=== PATIENT | female | born 1945 | race Caucasian/White ===

== ENCOUNTER 2017-02-19 08:00 | Outpatient (CLI) | payer MEDICARE, OTHER | END 2017-02-19 08:01 | disposition home or self-care (01) | LOC: BICMAMMO 08:00 | PROVIDERS: ATTEND Family Medicine | DX: Z12.31 Encounter for screening mammogram for malignant neoplasm of breast (principal); Z13.820 Encounter for screening for osteoporosis; M81.0 Age-related osteoporosis without current pathological fracture; Z80.3 Family history of malignant neoplasm of breast | CPT/HCPCS: 77063; 77080 ==

== ENCOUNTER 2017-03-20 18:16 | Inpatient (IN) | payer MEDICARE, OTHER ==
[2017-03-20 19:08] LABS: Bilirubin Negative (Negative); Blood, Urine Negative (Negative); Clarity CLEAR (Clear); Glucose, Urine (Dipstick) Negative (Negative); Leukocyte Negative (Negative); Nitrite Negative (Negative); Protein, Urine (Dipstick) Negative (Neg-Trace); Specific Gravity, Urine 1.017 (1.002-1.036); Urobilinogen 0.2 mg/dL (0.2-1.0); pH, Urine 7.5 (5.0-9.0)
[2017-03-20] MEDS ORDERED: Morphine 4 MG/ML VIAL ONE ×2 (19:25→20:25)
[2017-03-20] MEDS ORDERED: Ondansetron HCl/PF 4 MG/2 ML Vial ONE (19:28)
[2017-03-20 19:32] LABS: #Basophils 0.1 thou/uL (0.0-0.2); #Lymphocytes 1.6 thou/uL (1.20-3.40); #Neutrophils 7.1 thou/uL (1.40-6.50); %Basophils 0.8 % (0.0-1.0); %Eosinophils 0.5 % (0.0-10.0); %Lymphocytes 18.3 % (21.0-51.0); %Monocytes 0.1 % (0.0-10.0); %Neutrophils 80.4 % (42.0-75.0); Hemoglobin 10.6 g/dL (12.0-16.0); Mean Corpuscular HGB CONC 34.5 g/dL (32.0-36.0); Mean Corpuscular Hemoglobin 29.8 pg (27.0-31.0); Mean Corpuscular Volume 86.4 fl (81.0-99.0); Mean Platelet Volume 10.3 fL (7.4-10.4); Platelet Count 408 thou/uL (130-400); RBC Distribution Width 17.8 % (11.5-14.5); Red Blood Cell (RBC) Count 3.54 mill/uL (4.20-5.40); White Blood Cell (WBC) Count 8.9 thou/uL (4.8-10.8)
[2017-03-20 19:58] LABS: Albumin 3.9 g/dL (3.4-4.8); Alkaline Phosphatase 92 U/L (40-150); Anion Gap 13 mmol/L (10-20); BUN (Urea Nitrogen) 8 mg/dL (9.8-20.1); Bilirubin, Total 0.6 mg/dL (0.2-1.2); Calc. Creatinine Clearance 0 mL/min (70-130); Calcium 9.6 mg/dL (7.8-10.44); Carbon Dioxide 27 mmol/L (23-31); Chloride 104 mmol/L (98-107); Estimated GFR-MDRD Greater than 90; Globulin 3.9 g/dL (2.4-3.5); Glucose 115 mg/dL (83-110); Potassium 4.3 mmol/L (3.5-5.1); Protein, Total 7.8 g/dL (6.0-8.3); Sodium 140 mmol/L (136-145)
[2017-03-20 19:59] LABS: ALT (SGPT) 15 U/L (8-55); AST (SGOT) 17 U/L (5-34); Lipase 6 U/L (8-78)
[2017-03-20] MEDS ORDERED: Fentanyl 100 MCG/2 ML VIAL ONE (21:56)
--- NOTE | 2017-03-20 22:18 | RAD ---
ONE VIEW CHEST ABDOMEN TWO VIEWS 03/20/17 HISTORY: Pain. FINDINGS: ONE VIEW CHEST: Normal cardiac silhouette. The pulmonary vessels and hilum are normal. costophrenic angles are clear. No masses or consolidation. No pneumothorax or osseous abnormality. ABDOMEN TWO VIEWS: Nonspecific bowel gas pattern. No evidence of bowel distention or dilatation. Fecal material in a non distended, nondilated colon. Gallbladder is surgically absent. Previous vertebroplasty change involving the entire lumbar spine. IMPRESSION: 1. No acute cardiopulmonary process. 2. Nonspecific bowel gas pattern. POS: [facility]
[2017-03-20 23:59] VITALS: BMI 18.3
[2017-03-21] MEDS: Ondansetron HCl/PF 4 MG/2 ML Vial SLOW IVP PRN ×2 (00:33→06:16)
[2017-03-21] MEDS: D5 1/2 NS w/20 mEq KCL 1,000 ML IV SCH ×3 (00:33→21:48)
[2017-03-21] MEDS: predniSONE 50 MG TAB PO SCH ×3 (00:38→12:57)
[2017-03-21] MEDS: Fentanyl 100 MCG/2 ML VIAL SLOW IVP PRN ×6 (01:34→22:41)
[2017-03-21] MEDS ORDERED: DENOSUMAB 60 MG SC SCH (08:00)
[2017-03-21] MEDS ORDERED: Sodium Chloride 0.9% 10 ML ONE ×5 (08:15→15:15)
[2017-03-21] MEDS ORDERED: LEVOTHYROXINE SODIUM PO SCH (09:00)
--- NOTE | 2017-03-21 10:56 | HP ---
HISTORY OF PRESENT ILLNESS: The patient is a 72-year-old female who presented to the emergency room complaining of a 2 week history of abdominal pain. She had recently been hospitalized at [facility]. I did receive reports from them as well from Dr. Aalnis, the patient had recur rent abdominal pain. No primary etiology could be determined despite numerous testing. She apparent ly had been set up for CT scan here. I was informed that should she had increasing pain to report to the emergency room here at [place], which she stated does. She has noted nausea with diarrhea, b ut no blood, no fever. She rates her pain as a 10/10. She states she is scheduled to have some type of CT scan done. The exact nature of a CT scan is unknown to me. She also states she has been refe rred to Dr. Hill. Once again, I am unaware of the apparent referral at this time. Otherwise, no other medical complaints are noted. PAST MEDICAL HISTORY: Positive for multiple back procedures due to fractures. PAST SURGICAL HISTORY: Positive for multiple back procedures, TMJ surgery, thyroid surgery, appendec sonia, cholecystectomy, hysterectomy as well as tonsillectomy. ALLERGIES: She is allergic to ASPIRIN, CODEINE, CODEINE SULFATE, IODINE, PENICILLIN and SHELLFISH. CURRENT MEDICATIONS: Levothyroxine 0.25 mg daily, Protonix 40 mg daily, gabapentin 100 mg p.o. daily . SOCIAL AND PERSONAL HISTORY: She is single. She does not smoke nor does she drink alcohol. REVIEW OF SYSTEMS: CARDIOVASCULAR: Negative. GENITOURINARY: Negative. NEUROLOGIC: Negative. PULMONARY: Otherwise negative. PHYSICAL EXAMINATION: VITAL SIGNS: Temperature 97.9, BP 163/69, pulse 74, respirations 16, O2 sats 95%. GENERAL: She is alert, active, does not appear in any distress. HEENT: Normocephalic, atraumatic. Sclerae and conjunctivae clear. Throat clear. NECK: Supple, full range of motion, no masses. LUNGS: Bilateral breath sounds. HEART: Reveals a regular rate and rhythm without murmurs, gallops or rubs. ABDOMEN: The abdomen is distended and somewhat firm. Bowel sounds are minimal. There is diffuse te nderness noted. LABORATORY: Hemoglobin 10.6, hematocrit 30.6, white blood count 8.9. Electrolyte profile is normal. Urinalysis is otherwise clear. Acute abdominal series is otherwise unremarkable. IMPRESSION: Chronic abdominal pain. PLAN: It appears the patient is here to get a "special CT scan". I am unaware of the exact nature o f the CT scan. It has been scheduled as an outpatient already. I will see if they can transfer this as an inpatient procedure. I will consult GI and possible surgical consult.
[2017-03-21] MEDS ORDERED: diphenhydrAMINE 50 MG CAP PO SCH (13:00)
--- NOTE | 2017-03-21 13:09 | CON ---
DATE OF CONSULTATION: 03/21/2017 REASON FOR CONSULTATION: Chronic abdominal pain, abnormal GI imaging. CONSULTING PHYSICIAN: Dr. Torrey Schultz. HISTORY OF PRESENT ILLNESS: The patient is a 72-year-old female with past medical history of asthma, chronic lower back pain, and hypothyroidism, who presenting with chronic abdominal pain. Upon chart review, she was admitted to the [facility] in the beginning of February 2017 with acute onset of periumbilical abdominal pain. During that particular hospitalization, she had a CT scan that showed mild diffuse dilation of the small bowel (but no clear transition point) although a small-bowel obstruction could not be ruled out. Repeat CT scan on 02/28/2017 also showed a mildly dilated small bowel, but again no transition point concerning for small-bowel obstruction. She was ultimately discharged with improvement of her pain with conservative measures and was doing well until approximately 24-48 hours ago when she had recurrence of the same abdominal pain located in the suprapubic/periumbilical abdominal regions with radiation to the midepigastric region. The pain is characterized as sharp/stabbing in nature, constant, 10/10 in severity, worse with movement and eating and better with leaning forward and pain medications. Her abdominal pain was also associated with one bout of a watery diarrhea like bowel movement yesterday without the occurrence of hematochezia or melena. She also has associated nausea and vomiting of nonbloody emesis and associated with the abdominal pain. She denies any fever, chills, odynophagia, dysphagia, and has not passed flatus. Of note, as an outpatient, she was scheduled to have a CT enterography for further delineation of the small-bowel mucosa that was ordered on 03/07/2017, but still had not been performed. She also had a referral appointment with Dr. Hill that was supposed to be scheduled after obtaining this particular CT scan. Of note, she underwent EGD in 02/2017 with normal findings. REVIEW OF SYSTEMS: A 12 category review of systems was obtained with responses negative except for the pertinent positives as listed in the HPI. PAST MEDICAL HISTORY: Asthma, chronic lower back pain, and hypothyroidism. PAST SURGICAL HISTORY: Multiple back surgeries, TMJ surgery, thyroid surgery, appendectomy, cholecystectomy, hysterectomy, tonsillectomy, and colonic resection in 2002 secondary to obstruction. FAMILY HISTORY: No GI malignancies. SOCIAL HISTORY: Denies any tobacco, alcohol, or illicit drug use. OUTPATIENT MEDICATIONS: Include levothyroxine, Protonix, gabapentin, and Tylenol (approximately 2500 mg daily). ALLERGIES: Allergic to ASPIRIN, CODEINE, CODEINE SULFATE, IODINE, PENICILLIN, and SHELLFISH. PHYSICAL EXAMINATION: VITAL SIGNS: Temperature 97.9, pulse 73, blood pressure 167/70, respiratory rate 18, and satting 97% on room air. GENERAL: Patient is in no acute distress. Alert and oriented x4. HEENT: Normocephalic, atraumatic. Pupils equal, round, reactive to light. Extraocular movements intact. NECK: Supple. No JVD noted. CARDIOVASCULAR: Regular rate and rhythm with no discernible murmurs, gallops, or rub. RESPIRATORY: Clear to auscultation bilaterally with no discernible wheezes or rales. ABDOMEN: Normoactive bowel sounds, soft, nondistended. No hepatosplenomegaly. Exquisite tenderness to palpation on both light and deep palpation in the midepigastric periumbilical and suprapubic regions. Carnett sign positive. EXTREMITIES: No cyanosis, clubbing, or edema. IMAGING STUDIES: No current GI imaging is available for review. LABORATORY STUDIES: CBC with a white blood cell count of 8.9, hemoglobin 10.6, hematocrit 30.6, platelets 408. Chemistry with a sodium of 140, potassium 4.3, chloride 104, carbon dioxide 27, BUN 8, creatinine 0.63, platelets 115, AST 17, ALT 15, alkaline phosphatase 92, total bilirubin 0.6, and lipase 6. ASSESSMENT AND PLAN: The patient is a 72-year-old female with past medical history of asthma, chronic lower back pain, and hypothyroidism, who presenting with chronic recurrent periumbilical abdominal pain. Chronic abdominal pain The patient is presenting with chronic intermittent occurrences of periumbilical /suprapubic abdominal pain that originally started in early 02/2017. She was evaluated at the [facility] with initial CT scan showing a possible partial small-bowel obstruction due to diffusely dilated small bowel. Repeat CT scan on 02/28/2017 showed dilation of the small-bowel mucosa to 2.5 cm , but no discernible transition point. She is now presenting with recurrence of this abdominal pain despite more conservative measures that were pursued with the last hospitalization. She underwent EGD in 02/2017 which was negative for obvious pathology. She was recommended to get a CT enterography as an outpatient as well as follow up with the general surgeon, Dr. Hill, for evaluation and further definitive treatment if partial small-bowel obstruction is detected. Her current labs are not indicative of a complete small-bowel obstruction nor peritonitis. Lipase is normal making a diagnosis of pancreatitis also very unlikely. With Carnett sign positive on physical examination, it is concerning for abdominal wall pain and/or ventral hernia with incarcerated fat or bowel, although incarcerated bowel is also highly unlikely at this time. RECOMMENDATIONS: 1. We would obtain CT enterography of the abdomen and pelvis today for further evaluation of the abdominal anatomy as well as small-bowel intraluminal mucosa. 2. Continue pain control per primary team. 3. We would continue aggressive antiemetic administration as well as IV fluid administration, given her n.p.o. status. EGD is not indicated at this time due to recent negative upper endoscopy in 02/2017. MTDD
--- NOTE | 2017-03-21 16:23 | CT ---
CT ABDOMEN AND PELVIS WITH AND WITHOUT IV CONTRAST 03/21/17 HISTORY: Abdominal pain, diarrhea. Colon resection in 2002, status post appendectomy and hysterectomy as well. FINDINGS: There are bilateral breast implants. The lungs bases are unremarkable. No free air or lymphadenopathy seen in the abdomen or pelvis. There is a small amount of free fluid adjacent to the liver. The april ent is post hysterectomy and cholecystectomy. The liver, spleen, pancreas, adrenal glands are unremarkable. Bilateral renal cysts are present. Ther e is a prominent right extrarenal pelvis. No calculi is seen in the kidneys, ureters or the urinary b ladder. No hydroureteronephrosis is noted. There is a fluid filled distended gallbladder. A small bow el feces sign is seen in the proximal small bowel loops which are mildly dilated. The distal small miller wel loops also have air and feces but are not dilated. There are degenerative changes in the spine. T here are vascular calcifications without evidence of aneurysmal dilatation of the abdominal aorta. IMPRESSION: Findings are suspicious for small bowel obstruction. Other possibilities include metabolic or infecti ous processes. POS: [facility]
[2017-03-21] MEDS ORDERED: Fentanyl 100 MCG/2 ML VIAL SLOW IVP PRN (17:25)
[2017-03-21] MEDS: Betamethasone 0.1% Cream 15 GM TUBE TOP SCH (17:37)
[2017-03-21] MEDS: Calcium Carbonate + Vit D 1 TAB PO SCH (17:37)
[2017-03-21] MEDS: Montelukast Sodium 10 mg Tablet PO SCH (17:37)
[2017-03-21] MEDS ORDERED: Benzocaine 20% Spray 60 ML CAN PO PRN (18:03)
--- NOTE | 2017-03-21 20:57 | RAD ---
EXAM: ONE VIEW ABDOMEN 03/21/17 HISTORY: Confirm NG tube placement. FINDINGS: One view abdomen demonstrates and nasogastric tube in the left upper quadrant, presumed to be in the stomach. IMPRESSION: NG tube is presumed to be in the stomach. POS: [facility]
[2017-03-22] MEDS: Fentanyl 100 MCG/2 ML VIAL SLOW IVP PRN ×5 (02:51→20:21)
[2017-03-22 06:04] LABS: #Lymphocytes 1.2 thou/uL (1.20-3.40); %Eosinophils 0.2 % (0.0-10.0); %Lymphocytes 14.3 % (21.0-51.0); %Monocytes 0.1 % (0.0-10.0); %Neutrophils 85.4 % (42.0-75.0); Hemoglobin 9.5 g/dL (12.0-16.0); Mean Corpuscular HGB CONC 33.2 g/dL (32.0-36.0); Mean Corpuscular Hemoglobin 29.1 pg (27.0-31.0); Mean Corpuscular Volume 87.6 fl (81.0-99.0); Mean Platelet Volume 10.8 fL (7.4-10.4); Platelet Count 313 thou/uL (130-400); RBC Distribution Width 17.9 % (11.5-14.5); Red Blood Cell (RBC) Count 3.27 mill/uL (4.20-5.40); White Blood Cell (WBC) Count 8.2 thou/uL (4.8-10.8)
[2017-03-22 06:22] LABS: Anion Gap 12 mmol/L (10-20); BUN (Urea Nitrogen) 7 mg/dL (9.8-20.1); Calc. Creatinine Clearance 71 mL/min (70-130); Calcium 8.6 mg/dL (7.8-10.44); Carbon Dioxide 21 mmol/L (23-31); Chloride 109 mmol/L (98-107); Estimated GFR-MDRD Greater than 90; Glucose 135 mg/dL (83-110); Sodium 137 mmol/L (136-145)
[2017-03-22] MEDS: D5 1/2 NS w/20 mEq KCL 1,000 ML IV SCH (06:57)
[2017-03-22] MEDS: Dextrose 5 %-0.45 % NaCl 1,000 ML IV SCH ×2 (07:00→17:29)
[2017-03-22] MEDS: Levothyroxine 150 MCG TAB PO SCH (07:19)
[2017-03-22] MEDS: Betamethasone 0.1% Cream 15 GM TUBE TOP SCH (08:28)
[2017-03-22] MEDS: Calcium Carbonate + Vit D 1 TAB PO SCH (08:28)
[2017-03-22] MEDS: Montelukast Sodium 10 mg Tablet PO SCH (08:29)
--- NOTE | 2017-03-22 12:10 | PRG ---
DATE OF SERVICE: 03/22/2017 SUBJECTIVE: Ms. Forman is still complaining of some abdominal pain and throat pain from her NG tube. The patient had CT scan done yesterday and report reveals possible small-bowel obstruction versus oth er metabolic or infectious processes. There is no evidence of any significant dilated loops of bowel noted on CT. Nevertheless, yesterday she had an NG tube placed. The nurses have informed that a harvey rgical consultation has been ordered from Dr. Edwards and otherwise, no other medical problems are no jenifer. PHYSICAL EXAMINATION: VITAL SIGNS: Temperature is 98.0, blood pressure 163/70. LUNGS: Clear. HEART: Reveals no murmur. ABDOMEN: Softer today than yesterday, less distended. LABORATORY DATA: Hemoglobin 9.5, hematocrit 28.6, white blood count 8.2. Electrolyte profile is ess entially normal. IMPRESSION AND PLAN: Abdominal pain of unknown etiology, suspicion for possible small-bowel obstruct ion, cannot rule out any other metabolic processes. Previous workup done at [facility] with Gastroenterology. Further treatment recommendations, we will await surgical consult.
--- NOTE | 2017-03-22 12:27 | RAD ---
RADIOGRAPH ABDOMEN ONE VIEW: Date: 03-22-17 History: 71-year-old female with abdominal pain. Rule out small bowel obstruction. Comparison: KUB 03-21-17 at 7:21 p.m. FINDINGS: NG tube remains with distal tip at the lateral aspect of the left upper quadrant of the abdomen. Chol ecystectomy clips. Gas throughout nondilated colon. Whereas previously stool was not well visualized, a moderate amount of stool is now well visualized throughout the entire colon. Air filled borderline dilated multiple small bowel loops are visualized in the mid and lower abdomen. No evidence of organ omegaly. Vertebroplasty cement at every vertebral body level from T12 through L5. Whereas previously there was fold thickening involving the colon and small intestine, that appearance has improved now, especially of the colon. IMPRESSION: 1. No evidence of high grade small bowel obstruction. 2. Multiple borderline dilated small bowel loops. Possibilities include ileus and low grade partial s mall bowel obstruction. 3. Apparent interval improvement in the appearance of enterocolitis since yesterday. POS: [facility]
--- NOTE | 2017-03-22 17:24 | CON ---
DATE OF CONSULTATION: 03/22/2017. CONSULTING PHYSICIAN: Dr. Faheem Griffiths. REASON FOR CONSULTATION: Possible small-bowel obstruction. HISTORY OF PRESENT ILLNESS: Patient is a 72-year-old white female. She was admitted to the hospital on 03/20/2017 secondary to complaint of severe diffuse abdominal pain. She gives a history of a 10- day hospitalization at [facility] in February for the same symptoms. She underwe nt evaluation with upper GI endoscopy and CT scan. There were no definite findings of abnormality. She felt better by the time she was discharged. She was home for about 2 weeks. She states that dur ing that time, she had no vomiting, but she did have some mild diffuse pain and notes that she did duke ve some diarrhea. A couple of days ago, she again had some nausea, some diarrhea and recurrent pain and presented to the emergency room. A CT scan was obtained here revealing findings potentially cons istent with a small-bowel obstruction with enlarged stomach and some segment of dilated proximal smal l bowel. Nasogastric tube was placed, but almost no material was returned through the tube. When I presented to see her this morning, there was less than 5 mL in the NG container. She notes that she has had a bowel movement since her admission. She states that the pain is diffuse within the abdomen, may be m ore prominent in the upper abdomen than the lower abdomen. PAST MEDICAL HISTORY: 1. Asthma. 2. Lower back pain. 3. Hypothyroidism. PAST SURGICAL HISTORY: 1. Multiple back surgeries. 2. TMJ surgery. 3. Thyroid surgery. 4. Appendectomy. 5. Cholecystectomy. 6. Hysterectomy. 7. Tonsillectomy. 8. Colon resection in 2002 secondary to some obstructive process. MEDICATIONS: Include levothyroxine, Protonix, and gabapentin. PRIMARY CARE PHYSICIAN: Dr. Faheem Griffiths. SOCIAL HISTORY: She is with one living child. One of her sons of colon cancer. She de nies tobacco or alcohol use. REVIEW OF SYSTEMS: Otherwise, unremarkable. FAMILY HISTORY: Noncontributory. PHYSICAL EXAMINATION: VITAL SIGNS: She is afebrile and has been afebrile since her admission. Her pulse is stable between 73 and 83, blood pressure is 174/75. GENERAL: She is a well-developed, well-nourished, pleasant white female resting in bed in no acute d istress. She is alert and oriented x3. HEENT: Unremarkable. Nasogastric tube is present. NECK: Supple. LUNGS: Clear to auscultation anteriorly. CARDIAC: Regular rate and rhythm. ABDOMEN: Has well healed lower abdominal incision. It is mildly distended if at all. She has kayla l active bowel sounds. There is no guarding in any quadrant. RECTAL: Deferred. EXTREMITIES: Unremarkable. LABORATORY FINDINGS: The patient had labs drawn when she was admitted at 7:00 on 03/20/2017, and rep eat labs drawn this morning on 03/22/2017. Her CBC reveals mild anemia, 10.6 on admission and 9.5, c urrently. White blood cell count is normal at 8. Chemistry profile was essentially unremarkable at the time of admission. Her CO2 level has dropped from 27 down to 21. X-RAYS: KUB was obtained this morning. This revealed a normal amount of gas within the colon and so me stool present within the colon. There is a suggestion of some possible dilated loops of small bow el, but it is hard to tell on the plain film. ASSESSMENT: Patient with diffuse nonspecific abdominal pain with no definite evidence of intra-abdom inal acute process. It is hard to tell if she may have some degree of small-bowel obstruction, but i t seems unlikely given that there is no output from her nasogastric tube. Patient with diffuse abdominal pain of uncertain etiology. Given her multiple surgeries, adhesive pr ocess is certainly possible. It is not typical that adhesions will cause pain in the absence of obst ruction. I have recommended Gastrografin small bowel follow through to evaluate for small-bowel obst ruction either partial or complete. Unfortunately, she has an allergy to IODINE, has been determined by Radiology that the IODINE within Gastrografin is potentially a problem and she is therefore being premedicated with plans to obtain the small-bowel follow through tomorrow (Saturday) nasogastric tub e will be continued until then. I would encourage her to ambulate several times a day. If there is no evidence of bowel obstruction, then I am uncertain as to the etiology of her abdominal pain. It c ould theoretically be related to adhesive disease, but this is certainly not typical. It is also pos sible, given the extent of her back issues that this could be in some fashion related to a radiculopa thy or nerve related pain associated with her back problems. I would anticipate removal of her nasogastric tube after her small-bowel follow through tomorrow. Fu rther decision making will follow.
[2017-03-22] MEDS: predniSONE 50 MG TAB PO SCH (21:29)
--- NOTE | 2017-03-22 22:43 | PRG ---
DATE OF SERVICE: 03/22/2017 REASON FOR CONSULTATION: Chronic abdominal pain, abnormal GI imaging. SUBJECTIVE: Overnight, the patient continues to have the presenting suprapubic/periumbilical abdomin al pain with radiation to the midepigastric region despite placement of the NG tube yesterday, this p ain persists. Minimal output has been noticed from the NG tube over the last 12 hours. She currentl y denies any fevers, chills, shortness of breath, odynophagia, dysphagia, or diarrhea. PHYSICAL EXAMINATION: VITAL SIGNS: Temperature 97.9, pulse 73, blood pressure 179/75, respiratory rate 20, satting 98% on room air. GENERAL: The patient is in mild to moderate distress. Alert and oriented x4. NECK: Supple. No JVD noted. CARDIOVASCULAR: Tachycardic rate with regular rhythm with no discernible murmurs, gallops, or rubs. RESPIRATORY: Clear to auscultation bilaterally with no discernible wheezes or rales. ABDOMEN: Normoactive bowel sounds, soft, nondistended. Exquisite tenderness to palpation on both li ght and deep to palpation in the midepigastric periumbilical and suprapubic regions. EXTREMITIES: No cyanosis, clubbing, or edema. IMAGING STUDIES: CT enterography obtained on 03/21/2017, showed a small-bowel feces sign in the prox imal small bowel loops, which were mildly dilated. The distal small bowel loops also have air and feces that are nondilated. The findings were suspicio us for small-bowel obstruction. Other possibilities include metabolic or infectious process. LABORATORY DATA: CBC with a white blood cell count of 8.2, hemoglobin 9.5, hematocrit 28.6, platelet s 313. Chemistry with a sodium of 137, potassium 5, chloride 109, CO2 21, BUN 7, creatinine 0.59, gl ucose 135. ASSESSMENT AND PLAN: The patient is a 72-year-old female with past medical history of asthma, chroni c lower back pain, and hypothyroidism, who is presenting with chronic recurrent periumbilical abdomin al pain concerning for possible small-bowel obstruction. The patient is presenting with chronic inte rmittent occurrences of periumbilical/suprapubic abdominal pain, it originally started in 02/2017. S he has now had multiple imaging at [facility] showin g mild dilation of the proximal small bowel, but no discernible transition point. Of note, she also underwent an EGD in 02/2017 which was negative for obvious pathology in the upper GI tract. Currentl y with NG tube placed, she has had minimal NG tube output, which is not consistent with significant o bstruction of the upper GI tract. Her current labs are also not indicative of a complete small-bowel obstruction nor peritonitis with normal lipase. The diagnosis of pancreatitis is also very unlikely at this time, the etiology of her abdominal pain is unclear, but with multiple imaging studies now i s showing a proximal small bowel mild dilation is concerning for a partial small-bowel obstruction. The differential diagnosis for the above clinical constellation of symptoms could include small bowel Crohn's disease, adhesive disease (given her extensive abdominal surgeries in the past), intralumina l small bowel neoplasm (unlikely given the distinct transition point seen on imaging), infectious matt ology (unlikely given her lack of diarrhea since admission), and/or possible ischemia of the small miller wel (also unlikely given her current labs). RECOMMENDATIONS: 1. Agree with General Surgery consultation in that further delineation of the anatomy as needed with small bowel follow through. 2. Would continue with NG tube to low intermittent suction. 3. Would continue n.p.o. status with IV fluid administration. 4. EGD is not indicated at this time due to recent negative upper endoscopy in 02/2017 and minimal o utput on NG tube. We will continue to follow. Please call with any questions.
[2017-03-23] MEDS: Fentanyl 100 MCG/2 ML VIAL SLOW IVP PRN ×3 (01:34→12:12)
[2017-03-23] MEDS: predniSONE 50 MG TAB PO SCH ×2 (01:34→08:40)
[2017-03-23] MEDS: Dextrose 5 %-0.45 % NaCl 1,000 ML IV SCH ×2 (03:35→17:07)
[2017-03-23] MEDS ORDERED: MD-Gastroview 120 ML BOT ONE (06:28)
[2017-03-23] MEDS ORDERED: diphenhydrAMINE 50 MG CAP PO SCH (08:00)
[2017-03-23] MEDS: Montelukast Sodium 10 mg Tablet PO SCH (10:20)
[2017-03-23] MEDS: Calcium Carbonate + Vit D 1 TAB PO SCH (10:20)
[2017-03-23] MEDS ORDERED: Ondansetron HCl/PF 4 MG/2 ML Vial IVP PRN (10:25)
[2017-03-23] MEDS: Levothyroxine 150 MCG TAB PO SCH (10:29)
[2017-03-23] MEDS ORDERED: Ondansetron HCl/PF 4 MG/2 ML Vial IVP SCH (10:30)
--- NOTE | 2017-03-23 10:47 | PRG ---
DATE OF SERVICE: 03/23/2017 SUBJECTIVE: The patient still complains of abdominal pain. NG tube is in place. No reported fever. OBJECTIVE: VITAL SIGNS: Temperature 97.9, pulse 73, respirations 20, and blood pressure 187/79. HEART: Regular rate and rhythm. LUNGS: Clear. ABDOMEN: With bowel sounds from the NG tube. The patient is not passing any flatus or stool. LABORATORY DATA: None. ASSESSMENT: 1. Abdominal pain, most likely small-bowel obstruction. The patient does have a history of multiple abdominal surgeries. Workup is still pending. 2. Elevated blood pressure. Possibly related to the pain. Consider adding antihypertensive medicat ion. 3. History of multiple abdominal surgeries. 4. History of asthma. PLAN: 1. Small bowel, follow through today. 2. Continue NG tube. 3. We will continue to follow. 4. We will go ahead and start a Catapres TTS 2 patch every 7 days. 5. We will check BNP today.
[2017-03-23] MEDS ORDERED: cloNIDine 0.2mg/24 Hour PATCH TD SCH (11:00)
[2017-03-23] MEDS: Betamethasone 0.1% Cream 15 GM TUBE TOP SCH (11:48)
--- NOTE | 2017-03-23 12:04 | RAD ---
GASTROGRAFIN SMALL BOWEL EXAM: HISTORY: Assess for small bowel obstruction. Abdominal pain. FINDINGS: Edge [employer] film reveals some residual contrast in the colon from recent CT scan. An NG tube is in place w ith tip overlying the mid gastric fundus. The bowel gas pattern is unremarkable with scattered stool and gas throughout the colon. Multiple vertebroplasty procedures are noted in the visualized thorac ic and lumbar spine. Gastrografin was infused through the NG tube and sequential images were obtaine d at 15-minute intervals out to 1 hour. The initial images show opacification of the jejunum and ileum at 30 minutes. No evidence of dilatat ion. There is mild dilatation of the distal ileum seen on 45-minute film. However, by the 1-hour fi lm, contrast is seen throughout the colon and to the level of the rectum. IMPRESSION: Normal transit time through the small bowel with contrast to the level of the rectum at 1 hour. No e vidence of small bowel obstruction. POS: [facility]
[2017-03-23 12:21] LABS: Anion Gap 16 mmol/L (10-20); BUN (Urea Nitrogen) 10 mg/dL (9.8-20.1); Calc. Creatinine Clearance 66 mL/min (70-130); Calcium 9.4 mg/dL (7.8-10.44); Carbon Dioxide 21 mmol/L (23-31); Chloride 111 mmol/L (98-107); Estimated GFR-MDRD Greater than 90; Glucose 140 mg/dL (83-110); Potassium 4.1 mmol/L (3.5-5.1); Sodium 144 mmol/L (136-145)
--- NOTE | 2017-03-23 14:50 | PRG ---
DATE OF SERVICE: 03/23/2017 SUBJECTIVE: The patient is overall feeling better. She has had 6 bowel movements today. She is hap py that her nasogastric tube has been removed. She is tolerating liquids at this time. OBJECTIVE: VITAL SIGNS: Temperature 97.8, pulse 72, respiratory rate 20, blood pressure 151/69. CHEST: Clear. CARDIOVASCULAR: Regular rate and rhythm. ABDOMEN: Tender without rebound or guarding. Bowel sounds are present, slightly tympanitic. LABORATORY DATA: Shows chloride 111, CO2 21, glucose 140. Small bowel series was normal. ASSESSMENT: Partial small-bowel obstruction - appears to be resolving. RECOMMENDATIONS: Begin a trial of liquids, advance as tolerated.
--- NOTE | 2017-03-23 18:47 | PRG ---
DATE OF SERVICE: 03/23/2017 SUBJECTIVE: Patient has been seen in consult for possible bowel obstruction. The patient has underg one abdominal series with small bowel follow through which the patient had contrast to recommend one hour. The patient afterwards had multiple episodes of loose stool. She is denying nausea or abdomin al pain. We will discontinue her NG tube and start her on clear liquid diet. The patient has been a febrile overnight. Vital signs are stable. PHYSICAL EXAMINATION: VITAL SIGNS: Temperature is 97.9, heart rate 73, blood pressure 168/73, respirations 20. GENERAL: The patient is resting comfortably in bed. ABDOMEN: Soft, flat, and minimally tender diffusely without peritoneal signs or rebound. LABORATORY DATA: This morning, sodium 144, potassium 4.1, chloride 111, CO2 21, BUN 10, creatinine 0 .64, and glucose 140. RADIOGRAPHS: Small bowel follow through shows normal transit time through the small bowel with contr ast to the level of the rectum at one hour. No evidence of small-bowel obstruction. ASSESSMENT AND PLAN: Possible small-bowel obstruction, resolved. PLAN: Will be to discontinue NG tube and advance her diet as tolerated. If the patient does well ov eric, I would anticipate discharge tomorrow per the primary team.
[2017-03-23] MEDS ORDERED: traMADol HCl 50 MG TAB PO PRN ×2 (19:08)
[2017-03-23] MEDS ORDERED: Acetaminophen 500 MG TAB PO PRN (19:08)
[2017-03-24 00:06] VITALS: TEMP 98
[2017-03-24] MEDS: Dextrose 5 %-0.45 % NaCl 1,000 ML IV SCH ×2 (01:25→11:34)
[2017-03-24] MEDS: Levothyroxine 150 MCG TAB PO SCH (07:23)
[2017-03-24] MEDS ORDERED: Mag-Al 1200 mg/1200 mg/30 ML UDCUP PO PRN (09:15)
[2017-03-24] MEDS: Betamethasone 0.1% Cream 15 GM TUBE TOP SCH (09:20)
[2017-03-24] MEDS: Calcium Carbonate + Vit D 1 TAB PO SCH (09:21)
[2017-03-24] MEDS: Montelukast Sodium 10 mg Tablet PO SCH (09:21)
--- NOTE | 2017-03-24 10:34 | PRG ---
DATE OF SERVICE: 03/24/2017 SUBJECTIVE: The patient is feeling much better this morning. She does complain of a sore throat. H er abdominal pain is resolving. OBJECTIVE: VITAL SIGNS: Temperature 98.0, pulse 60, respirations 18, pulse ox 97, blood pressure 133/64. HEART: Regular rate and rhythm. LUNGS: Clear. ABDOMEN: Soft, nontender. EXTREMITIES: No edema. LABORATORY DATA: None. ASSESSMENT: 1. Partial small-bowel obstruction, resolving. 2. Blood pressure improved. 3. History of multiple abdominal surgeries. 4. History of asthma. PLAN: 1. Advance diet today. 2. Possible discharge this afternoon.
--- NOTE | 2017-03-24 11:25 | PRG ---
DATE OF SERVICE: 03/24/2017 SUBJECTIVE: The patient reports abdominal pain in the upper abdomen. She has had no nausea, vomitin g. She has had lots of bowel movements after Gastrografin small bowel series, but these seem to have leveled off. OBJECTIVE: VITAL SIGNS: Temperature 98.0, pulse 60, respiratory rate 18, blood pressure 133/64. CHEST: Clear. CARDIOVASCULAR: Regular rate and rhythm. ABDOMEN: Soft, tender in the right lower quadrant and epigastric area, but does not seem to be diste nded. EXTREMITIES: Normal. LABORATORY DATA: No new laboratory is noted. ASSESSMENT: Partial small-bowel obstruction - this seems to be resolved; however, she is having some persistent abdominal discomfort, which is probably some residual discomfort related to this partial small-bowel obstruction. RECOMMENDATIONS: We will give a trial of solid food prior to discharge.
[2017-03-24 14:44] VITALS: BP 140/65
--- NOTE | 2017-03-26 07:59 | DIS ---
DATE OF ADMISSION: 03/21/2017 DATE OF DISCHARGE: 03/24/2017 DISCHARGE DIAGNOSES: 1. Partial small-bowel obstruction, resolved spontaneously. 2. Hypertension. 3. History of multiple abdominal surgeries. 4. History of asthma. CONSULTANTS: Dr. Caicedo. DISCHARGE MEDICATIONS: Nexium 40 q. day, Singulair 10 q. day, Elocon cream, calcium with vitamin D, and levothyroxine 150 two p.o. q. day. BRIEF HISTORY: This is a 72-year-old white female who presents with abdominal pain. She was hospita lized earlier at the [facility]. She was followed by Dr. Alanis. She was someho w ended up at the [facility] and was admitted. She was requiring a CAT scan. There was some conf usion in the transfer, but patient was hospitalized for several days at [facility]. She was noted to have nausea with diarrhea, but no blood and no fever. She currently rated her a bdominal pain was 10/10. Therefore, she was admitted for further evaluation. Dr. Caicedo GI was consu lted. A CT of the abdomen and pelvis was obtained. The patient was given pain medications for pain control. Abdominal and pelvic CT revealed findings suggestive of small-bowel obstruction. No other findings noted. Dr. Edwards was consulted as well. A NG tube was placed. A small bowel follow-thro ugh was obtained, which was found to be unremarkable. No evidence of small-bowel obstruction was not ed. However, patient's progress improved significantly. By the time of discharge, her abdominal krystla n had resolved. Her NG tube was removed. She was tolerating a regular diet and is to be discharged. The patient does have a history of multiple abdominal surgeries. She most likely has adhesions, wh ich caused a partial small-bowel obstruction, which has resolved. The patient has been informed that there is a high likelihood that this can return in the future. She may even need surgery to correct this time. However, if surgery is avoidable that would be in her best interest.
== END 2017-03-24 15:15 | disposition home or self-care (01) | DRG 390 ==
LOC: ERS 18:16 → 3SE 22:23 → OBSVTOIN 03-21 17:35
PROVIDERS: ADMIT Family Medicine; ATTEND Family Medicine
DX: K56.609 Unspecified intestinal obstruction, unspecified as to partial versus complete obstruction (principal); E03.9 Hypothyroidism, unspecified; R03.0 Elevated blood-pressure reading, without diagnosis of hypertension; J45.909 Unspecified asthma, uncomplicated; M54.5 Low back pain; G89.29 Other chronic pain; Z87.81 Personal history of (healed) traumatic fracture; Z88.0 Allergy status to penicillin; Z88.8 Allergy status to other drugs, medicaments and biological substances; Z88.5 Allergy status to narcotic agent; Z91.013 Allergy to seafood
CPT/HCPCS: 36415; 74018; 74022; 74177; 74250; 80048; 80053; 81003; 83690; 85025; 93005; 96372; 96374; 96375; 96376; A4216; J2270; J2405; J3010

== ENCOUNTER 2017-05-14 08:38 | Outpatient (CLI) | payer MEDICARE, OTHER ==
[2017-05-14 09:33] LABS: Estimated GFR-MDRD - POC Greater than 90
--- NOTE | 2017-05-14 12:08 | CT ---
CT ANGIO ABDOMEN AND PELVIS WITH CONTRAST: TECHNIQUE: Multiple axial tomograms were obtained through the abdomen and pelvis following angio protocol with m ultiplanar reconstruction and 3D post processing. HISTORY: Abdominal pain. Assess for vascular etiology. The abdominal aorta shows mild atherosclerotic change. No aneurysmal dilatation. No dissection. No significant stenosis seen at the origin of the celiac artery or superior mesenteric artery. The sup erior mesenteric artery trunk is patent with no significant atherosclerotic change. Superior mesente venkat artery branches appear patent. Inferior mesenteric artery is not identified. Renal arteries show atherosclerotic change at the origin of both renal arteries; however, no signific ant renal artery stenosis identified. The aortic bifurcation is patent. The visualized common iliacs, internal iliacs, external iliacs, an d common femoral arteries appear unremarkable. Liver, spleen, and pancreas unremarkable. A 1.5 cm cyst lateral left mid kidney. Several other smal ler subcentimeter cysts in both kidneys. No enhancing renal mass. Small bowel loop is normal calibe r. Colon unremarkable. Urinary bladder unremarkable. Evidence of multiple vertebroplasty procedure s involving the lumbar spine. The patient has bilateral breast implants. There is capsular calcification bilaterally. There is di sruption in the capsular calcification anteriorly on the right and there may be a confined leak to wh at appears to be a saline implant extending through this capsular calcification anteriorly on the rig ht. IMPRESSION: Mild atherosclerotic disease involving the abdominal aorta as described above. No significant stenos is identified in any of the major aortic branch arteries. POS: OFF
[2017-05-14] MEDS ORDERED: Iopamidol 370 76% 100 ML VIAL ONE (12:44)
== END 2017-05-14 08:39 | disposition home or self-care (01) ==
LOC: CT 08:38
PROVIDERS: ATTEND Internal Medicine Gastroenterology
DX: R10.32 Left lower quadrant pain (principal); R93.3 Abnormal findings on diagnostic imaging of other parts of digestive tract; I70.0 Atherosclerosis of aorta
CPT/HCPCS: 74174; 82565

== ENCOUNTER 2017-06-07 15:11 | Emergency (ER) | payer MEDICARE, OTHER ==
[~2017-06-07 15:11] MED LIST: Iopamidol 370 76% 100 ML VIAL ONE
--- NOTE | 2017-06-07 15:47 | RAD ---
UPRIGHT PORTABLE CHEST 1 VIEW: Date: 06/07/17 HISTORY: 72-year-old female with history of fever, with shortness of breath and productive cough. COMPARISON: 08/01/13. FINDINGS: Bilateral breast augmentation prosthesis. There are multiple vertebroplasties involving the lumbothor acic spine. No confluent pneumonia or overt edema. No evidence for metastasis. IMPRESSION: No acute intrathoracic disease. Bilateral breast augmentation prosthesis. Multiple vertebroplasties o f the lumbar and lower thoracic spine. POS: OFF
[2017-06-07 15:58] LABS: Anion Gap 17 mmol/L (10-20); BUN (Urea Nitrogen) 14 mg/dL (9.8-20.1); Calc. Creatinine Clearance 0 mL/min (70-130); Calcium 8.1 mg/dL (7.8-10.44); Carbon Dioxide 22 mmol/L (23-31); Chloride 101 mmol/L (98-107); Estimated GFR-MDRD 78; Glucose 110 mg/dL (83-110); Potassium 4.3 mmol/L (3.5-5.1); Sodium 136 mmol/L (136-145)
[2017-06-07 16:15] LABS: #Basophils 0.2 thou/uL (0.0-0.2); #Lymphocytes 1.1 thou/uL (1.20-3.40); #Monocytes 0.1 thou/uL (0.11-0.59); #Neutrophils 10.4 thou/uL (1.40-6.50); %Basophils 1.7 % (0.0-1.0); %Eosinophils 0.2 % (0.0-10.0); %Lymphocytes 9.1 % (21.0-51.0); %Monocytes 1.2 % (0.0-10.0); %Neutrophils 87.9 % (42.0-75.0); Eosinophils 1 % (0-10); Hemoglobin 11.4 g/dL (12.0-16.0); Hypochromia SLIGHT = 6-15 cells (100X) (0-5/hpf); Large Platelets SLIGHT; Lymphocytes 8 % (21-51); MDiff Complete? YES; Mean Corpuscular Hemoglobin 28.1 pg (27.0-31.0); Mean Platelet Volume 9.7 fL (7.4-10.4); Microcytosis SLIGHT = 6-15 cells (100X) (0-5/hpf); Monocytes 2 % (0-10); Neutrophil 88 % (42-75); Ovalocytes SLIGHT = 2-5 cells (100X) (0-1/hpf); PLT Morphology Comment Appears Increased; Platelet Count 431 thou/uL (130-400); RBC Distribution Width 13.4 % (11.5-14.5); Red Blood Cell (RBC) Count 4.06 mill/uL (4.20-5.40); White Blood Cell (WBC) Count 11.8 thou/uL (4.8-10.8)
[2017-06-07] MEDS ORDERED: Albuterol Sulfate 2.5 mg/0.5 ml Neb ONE (16:49)
[2017-06-07] MEDS ORDERED: Acetaminophen 325 MG TAB ONE (17:17)
[2017-06-07 17:20] LABS: Bilirubin Moderate (Negative); Blood, Urine Trace (Negative); Glucose, Urine (Dipstick) Negative (Negative); Leukocyte Negative (Negative); Nitrite Negative (Negative); Protein, Urine (Dipstick) 100 mg/dL (Neg-Trace); pH, Urine 5.5 (5.0-9.0)
[2017-06-07 17:23] LABS: Clarity Hazy (Clear); Specific Gravity, Urine 1.028 (1.002-1.036)
[2017-06-07 17:24] LABS: Bacteria/HPF 1+ HPF (None Seen); RBC/HPF 0-3 HPF (0-3); WBC/HPF 0-3 HPF (0-3)
[2017-06-07 18:10] LABS: ALT (SGPT) 14 U/L (8-55); AST (SGOT) 29 U/L (5-34); Albumin 3.6 g/dL (3.4-4.8); Alkaline Phosphatase 64 U/L (40-150); Bilirubin, Direct 0.2 mg/dL (0.1-0.3); Bilirubin, Total 0.7 mg/dL (0.2-1.2); Protein, Total 7.9 g/dL (6.0-8.3)
--- NOTE | 2017-06-07 19:37 | CT ---
CT ABDOMEN AND PELVIS WITH IV CONTRAST: 06/08/15. HISTORY: Shortness of breath and productive cough for one week. Patient also reports weakness and bodyaches an d loss of appetite with fever. COMPARISON: 03/21/17. FINDINGS: Again noted are bilateral breast prostheses with calcified capsules involving each breast prosthesis. There is question rupture involving the right breast implant, but this is difficult to adequately ev aluate on CT examination. This is a stable finding compared to CT abdomen on 03/21/17. There are reticulonodular and patchy parenchymal opacities seen within the left lower lobe suggesting pneumonia. The right lung base is clear. There are vertebroplasty changes involving all of the lumba r vertebral bodies. There are vertebroplasty changes involving all of the lumbar vertebral bodies and there are stable subcentimeter too small to characterize hypodense lesions in each kidney with a lar rupa stable cyst seen in the left kidney. The liver, spleen, pancreas, and bilateral adrenal glands demonstrate a normal CT appearance. The urinary bladder is completely decompressed and not well evaluated on this exam. The uterus is not visualized probably related to prior hysterectomy. Vascular calcifications are seen in the abdominal aorta and iliac arteries. There has been no interva l change when compared to the prior exam. IMPRESSION: 1. Left lower lobe pneumonia. Followup to complete resolution is recommended. 2. Stable left renal cyst as well as stable subcentimeter too small to characterize hypodense le sions bilateral kidneys. 3. Postcholecystectomy changes as well as postsurgical changes related to hysterectomy. 4. Calcified bilateral breast prostheses with questionable contained rupture of the right breast implant as the breast implant has a different appearance compared to study on 05/25/13, but this is d ifficult to adequately evaluate on this exam. This is a stable finding compared to study on 03/21/17. POS: [facility]
== END 2017-06-07 19:55 | disposition home or self-care (01) ==
LOC: SCSER 15:11
DX: J18.9 Pneumonia, unspecified organism (principal); E03.9 Hypothyroidism, unspecified; Z79.899 Other long term (current) drug therapy
CPT/HCPCS: 71045; 74177; 80048; 80076; 81003; 81015; 83605; 85025; 87040; 87804; 93005; 96360; J7611; J7620

== ENCOUNTER 2017-12-12 11:50 | Outpatient (CLI) | payer MEDICARE, OTHER ==
--- NOTE | 2017-12-12 13:20 | ULT ---
BILATERAL CAROTID DUPLEX ULTRASOUND: History: TIA. FINDINGS: Real-time color doppler evaluation of the right and left carotid systems was performed. On the right sided peak systolic velocity of the common carotid 83 cm/sec. Internal carotid velocity 79 cm/sec. External carotid velocity 85 cm/sec. On the left side peak systolic velocity of the common carotid 101 cm/sec. Internal carotid velocity 7 1 cm/sec. External carotid velocity 66 cm/sec. Vertebral flow is antegrade bilaterally. IMPRESSION: No evidence of a hemodynamically significant stenosis of either internal carotid artery. POS: [facility]
== END 2017-12-12 11:51 | disposition home or self-care (01) ==
LOC: BICULT 11:50
PROVIDERS: ATTEND Family Medicine
DX: G45.9 Transient cerebral ischemic attack, unspecified (principal)
CPT/HCPCS: 93880

== ENCOUNTER 2018-03-28 08:06 | Outpatient (CLI) | payer MEDICARE, OTHER | END 2018-03-28 08:07 | disposition home or self-care (01) | LOC: BICMAMMO 08:06 | PROVIDERS: ATTEND Family Medicine | DX: Z12.31 Encounter for screening mammogram for malignant neoplasm of breast (principal); R92.1 Mammographic calcification found on diagnostic imaging of breast; Z80.3 Family history of malignant neoplasm of breast; Z80.1 Family history of malignant neoplasm of trachea, bronchus and lung; Z98.82 Breast implant status | CPT/HCPCS: 77063; 77067 ==

== ENCOUNTER 2018-04-22 08:23 | Outpatient (CLI) | payer MEDICARE, OTHER ==
[2018-04-22 09:07] LABS: Estimated GFR-MDRD - POC Greater than 90
[2018-04-22] MEDS ORDERED: Iopamidol 370 76% 100 ML VIAL ONE (10:03)
--- NOTE | 2018-04-22 10:26 | CT ---
CT OF THE FACE WITHOUT AND WITH CONTRAST: Comparison: None. History: Pain in the right front of the ear since February. Right facial swelling. Technique: Multiple contiguous axial images were obtained in a CT of the face without and with contra st. Sagittal and coronal reformats were performed. FINDINGS: There is hardware in the right posterior mandible extending to the tibial mandibular joint. No periha rdware lucency is seen. Along the inferior aspect of the mandibular angle and adjacent to the inferio r aspect of the mandibular plate, there is a hyperdensity measuring 1.6 cm in size. This may represen t heterotopic ossification extending from the inferior aspect of the hardware. This is hyperdense bef ore contrast and a hyperdense mass is not likely. The medial wall of both maxillary sinuses is absent which may represent post-surgical change. No sinu s opacification is seen. Mastoid air cells are well aerated. Streak artifact is seen from dental amalgam limiting this examination. Submandibular glands and parot id glands are symmetric in appearance. No obvious cervical adenopathy is seen. The visualized intracranial structures are unremarkable. Globes and retrobulbar soft tissues are unre markable. IMPRESSION: There is a hyperdensity along the inferior aspect of the right mandibular angle which may represent h eterotopic bone formation adjacent to the patient's hardware. POS: [facility]
== END 2018-04-22 08:24 | disposition home or self-care (01) ==
LOC: CT 08:23
PROVIDERS: ATTEND Dentist Oral and Maxillofacial Surgery
DX: R22.0 Localized swelling, mass and lump, head (principal)
CPT/HCPCS: 70488; 82565

== ENCOUNTER 2019-01-29 14:49 | Emergency (ER) | payer MEDICARE, OTHER ==
[2019-01-29] MEDS ORDERED: Iopamidol-370 76% 500 ML 1 ML ONE (15:24)
[2019-01-29] MEDS ORDERED: Nitroglycerin 0.4 MG TAB 1 EACH ONE (15:47)
[2019-01-29] MEDS ORDERED: Lidocaine 1% PF 5 ML VIAL ONE (15:57)
[2019-01-29] MEDS ORDERED: diphenhydrAMINE 50 MG/ML VIAL ONE (16:19)
[2019-01-29] MEDS ORDERED: Famotidine/PF 20 mg/2ml Vial ONE (16:19)
[2019-01-29] MEDS ORDERED: Hydrocortisone Sod Succ/PF 100 mg/2 ml Vial ONE (16:19)
[2019-01-29] MEDS ORDERED: Ondansetron PF 4 MG/2 ML Vial ONE ×2 (16:21→17:23)
[2019-01-29 16:36] LABS: Hemoglobin 10.9 g/dL (12.0-16.0); Mean Corpuscular HGB CONC 34.7 g/dL (32.0-36.0); Mean Corpuscular Volume 86.3 fL (78.0-98.0); RBC Distribution Width 17.9 % (11.5-14.5); Red Blood Cell (RBC) Count 3.65 mill/uL (4.20-5.40)
--- NOTE | 2019-01-29 16:39 | RAD ---
FRONTAL VIEW CHEST: 01/29/19 COMPARISON: 06/07/17 INDICATION: Pain. FINDINGS: Added density at the lower chest bilaterally is related to overlying breast implants. The lungs are o therwise clear. The cardiac silhouette is stable. There is osseous degenerative change. Prior vertebr oplasty with methyl methacrylate of the lower aspect of the imaged spine noted. There is vascular ba cifications. IMPRESSION: No focal consolidation. POS: OFF
[2019-01-29 16:49] LABS: ALT (SGPT) 9 U/L (8-55); AST (SGOT) 39 U/L (5-34); Alkaline Phosphatase 70 U/L (40-110); Anion Gap 14 mmol/L (10-20); BUN (Urea Nitrogen) 5 mg/dL (9.8-20.1); Bilirubin, Total 0.6 mg/dL (0.2-1.2); Calc. Creatinine Clearance 0 mL/min (70-130); Calcium 8.3 mg/dL (7.8-10.44); Carbon Dioxide 25 mmol/L (23-31); Chloride 104 mmol/L (98-107); Estimated GFR-MDRD 58; Globulin 2.9 g/dL (2.4-3.5); Glucose 89 mg/dL (83-110); Lipase 8 U/L (8-78); Potassium 3.2 mmol/L (3.5-5.1); Protein, Total 6.9 g/dL (6.0-8.3); Sodium 140 mmol/L (136-145)
[2019-01-29 17:00] LABS: Anisocytosis SLIGHT = 6-15 cells (100X) (0-5/hpf); Band 5 % (5-11); Differential Comment Immature Cell(s); Eosinophils 1 % (0-10); Lymphocytes 7 % (21-51); MDiff Complete? YES; Mean Platelet Volume 7.9 fL (7.4-10.4); Metamyelocyte 1 % (0-0); Monocytes 1 % (0-10); Neutrophil 10 % (42-75); Ovalocytes SLIGHT = 2-5 cells (100X) (0-1/hpf); Platelet Count 129 thou/uL (130-400); Platelet Morphology Comment Appears Decreased; Polychromasia SLIGHT = 2-3 cells (100X) (0-2/hpf); Reflex for Review?? YES; Schistocytes SLIGHT = 2-5 cells (100X) (0-1/hpf)
[2019-01-29] MEDS ORDERED: Morphine 4 MG/ML VIAL ONE (17:28)
--- NOTE | 2019-01-29 17:32 | CT ---
CT chest and abdomen with contrast CLINICAL HISTORY: Pain FINDINGS: No evidence of aortic dissection, or aneurysm. There is scattered vascular disease. Enlarge d thoracic lymph nodes are present notably involving the precarinal region, with a 1.8 cm lymph node present. Scattered patchy subpleural opacities are present. No evidence of pleural effusion, or pneumothorax. There are hypodensities of the kidneys bilaterally the majority of which are too small to further characterize. Dominant hypodensity of the posterior left kidney is compatible with a cyst. There is enlargement of the spleen. Scattered borderline-sized intra-abdominal lymph nodes are present. Multilevel methyl methacrylate related to prior vertebroplasties are present involving l ower thoracic, and lumbar spine. IMPRESSION: 1. No evidence of acute aortic dissection or aneurysm. 2. Enlarged thoracic lymph nodes and splenomegaly. Findings could relate to lymphoma. Recommend clini ba correlation and follow-up in this regard. Transcribed Date/Time: 01/29/2019 5:53 PM
[2019-01-29 17:54] LABS: Bacteria/HPF None Seen HPF (None Seen); Bilirubin Negative (Negative); Blood, Urine 1+ (Negative); Clarity Clear (Clear); Glucose, Urine (Dipstick) Normal (Negative); Leukocyte Negative Leu/uL (Negative); Nitrite Negative (Negative); Protein, Urine (Dipstick) Negative (Neg-Trace); RBC/HPF 0-3 HPF (0-3); Squamous Epithelial 0-3 HPF (0-3); Urobilinogen Normal mg/dL (Less than 2); WBC/HPF 0-3 HPF (0-3)
[2019-01-29 18:38] LABS: Phosphorus 2.8 mg/dL (2.3-4.7)
[2019-01-29] MEDS ORDERED: Allopurinol 300 MG TAB PO SCH (19:00)
[2019-01-29] MEDS ORDERED: Magnesium 2 GM/50 ML BAG (IN WATER) ONE (19:17)
[2019-01-29] MEDS ORDERED: Potassium Chloride 10 MEQ TAB PO SCH (19:30)
[2019-01-29 19:37] LABS: INR-International Normal Ratio 1.4; Prothrombin Time 17.2 SEC (12.0-14.7)
== END 2019-01-29 20:45 | disposition short-term general hospital (02) ==
LOC: ERS 14:49
DX: E87.6 Hypokalemia (principal); E83.42 Hypomagnesemia; E03.9 Hypothyroidism, unspecified; J45.909 Unspecified asthma, uncomplicated; Z79.899 Other long term (current) drug therapy
CPT/HCPCS: 36415; 71045; 71275; 72191; 74175; 80053; 81003; 81015; 83605; 83615; 83690; 83735; 84100; 84484; 84550; 85025; 85060; 85610; 93005; 96361; 96365; 96375; 96376; J1200; J1720; J2001; J2270; J2405; J3475; Q9967; S0028

== ENCOUNTER 2019-03-19 12:11 | Day surgery (SDC) | payer MEDICARE, OTHER ==
[2019-03-19] MEDS ORDERED: Dexamethasone 4 mg/ml Vial SLOW IVP SCH (12:30)
[2019-03-19] MEDS ORDERED: diphenhydrAMINE 25 MG CAP PO SCH (12:30)
[2019-03-19] MEDS ORDERED: Acetaminophen 500 MG TAB PO SCH (12:30)
[2019-03-19 19:52] VITALS: BP 120/56; TEMP 98.6
[2019-03-19 20:29] LABS: Hemoglobin 9.5 g/dL (12.0-16.0); Mean Corpuscular HGB CONC 37.1 g/dL (32.0-36.0); Mean Corpuscular Hemoglobin 31.3 pg (27.0-31.0); Mean Corpuscular Volume 84.3 fL (78.0-98.0); Mean Platelet Volume 8.4 fL (7.4-10.4); Platelet Count 50 thou/uL (130-400); Platelet Morphology Comment Appears Decreased; RBC Distribution Width 17.2 % (11.5-14.5); Red Blood Cell (RBC) Count 3.04 mill/uL (4.20-5.40); White Blood Cell (WBC) Count 0.1 thou/uL (4.8-10.8)
== END 2019-03-19 20:14 | disposition home or self-care (01) ==
LOC: ONC/OP 12:11 → ONC 12:14 → ONC/OP 20:14
PROVIDERS: ATTEND Internal Medicine Hematology & Oncology
PROC: 30233R1 Transfusion of Nonautologous Platelets into Peripheral Vein, Percutaneous Approach (ICD-10-PCS; principal; 2019-03-19)
PROC: 30233N1 Transfusion of Nonautologous Red Blood Cells into Peripheral Vein, Percutaneous Approach (ICD-10-PCS; 2019-03-19)
DX: D64.9 Anemia, unspecified (principal); D69.6 Thrombocytopenia, unspecified; Z88.0 Allergy status to penicillin; Z88.5 Allergy status to narcotic agent; Z88.8 Allergy status to other drugs, medicaments and biological substances; Z91.013 Allergy to seafood; Z91.041 Radiographic dye allergy status
CPT/HCPCS: 36415; 36430; 80053; 82248; 83615; 84100; 84443; 84550; 85025; 86850; 86900; 86901; J1100; P9016; P9035; Q0163

== ENCOUNTER 2019-05-15 08:05 | Day surgery (SDC) | payer MEDICARE, OTHER ==
[2019-05-15] MEDS ORDERED: Sodium Chloride 0.9% 20 ML ONE (08:23)
[2019-05-15] MEDS ORDERED: Acetaminophen 500 MG TAB PO SCH ×2 (09:15→17:00)
[2019-05-15] MEDS ORDERED: diphenhydrAMINE 25 MG CAP PO SCH (09:15)
[2019-05-15 17:16] VITALS: BP 138/62; TEMP 99.2
== END 2019-05-15 17:16 | disposition home or self-care (01) ==
LOC: ONC/OP 08:05
PROVIDERS: ATTEND Internal Medicine Hematology & Oncology
PROC: 30233N1 Transfusion of Nonautologous Red Blood Cells into Peripheral Vein, Percutaneous Approach (ICD-10-PCS; principal; 2019-05-15)
DX: D64.9 Anemia, unspecified (principal); D69.6 Thrombocytopenia, unspecified
CPT/HCPCS: 36415; 36430; 86850; 86900; 86901; P9016; Q0163

== ENCOUNTER 2019-06-01 09:21 | Day surgery (SDC) | payer MEDICARE, OTHER ==
[2019-06-01] MEDS ORDERED: diphenhydrAMINE 25 MG CAP PO SCH (11:15)
[2019-06-01] MEDS ORDERED: Acetaminophen 500 MG TAB PO SCH (11:15)
[2019-06-01] MEDS ORDERED: Sodium Chloride 0.9% 10 ML ONE (16:16)
[2019-06-01 16:23] VITALS: BP 120/58; TEMP 97.6
== END 2019-06-01 16:23 | disposition home or self-care (01) ==
LOC: ONC/OP 09:21
PROVIDERS: ATTEND Internal Medicine Hematology & Oncology
PROC: 30233N1 Transfusion of Nonautologous Red Blood Cells into Peripheral Vein, Percutaneous Approach (ICD-10-PCS; principal; 2019-06-01)
DX: D64.9 Anemia, unspecified (principal); D69.6 Thrombocytopenia, unspecified; Z88.0 Allergy status to penicillin; Z88.5 Allergy status to narcotic agent; Z88.8 Allergy status to other drugs, medicaments and biological substances; Z91.013 Allergy to seafood; Z91.041 Radiographic dye allergy status
CPT/HCPCS: 36430; 86850; 86900; 86901; P9016; Q0163

== ENCOUNTER 2019-06-24 11:45 | Day surgery (SDC) | payer MEDICARE, OTHER ==
[2019-06-24] MEDS ORDERED: Sodium Chloride 0.9% 20 ML ONE (11:54)
[2019-06-24] MEDS ORDERED: diphenhydrAMINE 25 MG CAP PO SCH (12:00)
[2019-06-24] MEDS ORDERED: Acetaminophen 500 MG TAB PO SCH (12:00)
[2019-06-24 16:03] VITALS: BP 145/63; TEMP 98.5
== END 2019-06-24 16:03 | disposition home or self-care (01) ==
LOC: ONC/OP 11:45
PROVIDERS: ATTEND Internal Medicine Hematology & Oncology
DX: D64.9 Anemia, unspecified (principal); D69.6 Thrombocytopenia, unspecified
CPT/HCPCS: 36430; 86850; 86900; 86901; P9016; Q0163

== ENCOUNTER 2019-07-06 08:35 | Day surgery (SDC) | payer MEDICARE, OTHER ==
[2019-07-03 12:32] VITALS: BMI 24.7
[2019-07-06 09:27] LABS: PTT 32.7 SEC (22.9-36.1); Prothrombin Time 13.6 SEC (12.0-14.7)
--- NOTE | 2019-07-06 11:37 | CT ---
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 Thrombocytopenia.. PROCEDURE: The procedure including the risks and complications were explained to the patient, and informed conse nt was obtained. The patient was placed on the CT scan table in the prone position. 50 mcg of fentanyl was administered intravenously during the procedure. Noncontrasted CT images were obtained through the pelvis. An area was marked overlying the RIGHT rebecca c bone, and the area was meticulously prepped and draped in usual sterile fashion. The skin and subcutaneous tissues were infiltrated with buffered 1% lidocaine for local anesthesia. After a small skin incision was made, an 11-gauge needle was advanced and positioning was confirmed w ith axial CT images. Approximately 8 milliliters of bone marrow aspirate was obtained. The needle was then further advanced, and a bone marrow biopsy was performed. The needle was removed, and hemost asis was achieved with direct pressure. The patient tolerated the procedure well and without immediate complication. The patient was transported to radiology nurses holding area for further maxwell toring prior to discharge. IMPRESSION: Technically successful percutaneous bone marrow aspiration and biopsy. Pathology results are pending.
[2019-07-06 11:50] VITALS: BP 150/66; TEMP 97.9
--- NOTE | 2019-07-08 14:04 | CT ---
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 Thrombocytopenia.. PROCEDURE: The procedure including the risks and complications were explained to the patient, and informed conse nt was obtained. The patient was placed on the CT scan table in the prone position. 50 mcg of fentanyl was administered intravenously during the procedure. Noncontrasted CT images were obtained through the pelvis. An area was marked overlying the RIGHT rebecca c bone, and the area was meticulously prepped and draped in usual sterile fashion. The skin and subcutaneous tissues were infiltrated with buffered 1% lidocaine for local anesthesia. After a small skin incision was made, an 11-gauge needle was advanced and positioning was confirmed w ith axial CT images. Approximately 8 milliliters of bone marrow aspirate was obtained. The needle was then further advanced, and a bone marrow biopsy was performed. The needle was removed, and hemost asis was achieved with direct pressure. The patient tolerated the procedure well and without immediate complication. The patient was transported to radiology nurses holding area for further maxwell toring prior to discharge. IMPRESSION: Technically successful percutaneous bone marrow aspiration and biopsy. Pathology results are pending. Transcribed Date/Time: 07/08/2019 2:04 PM
== END 2019-07-06 13:00 | disposition home or self-care (01) ==
LOC: CT 08:35
PROVIDERS: ATTEND Internal Medicine Hematology & Oncology
PROC: 07DR3ZX Extraction of Iliac Bone Marrow, Percutaneous Approach, Diagnostic (ICD-10-PCS; principal; 2019-07-06)
DX: C92.00 Acute myeloblastic leukemia, not having achieved remission (principal); D70.1 Agranulocytosis secondary to cancer chemotherapy; T45.1X5A Adverse effect of antineoplastic and immunosuppressive drugs, initial encounter; D69.6 Thrombocytopenia, unspecified; M32.9 Systemic lupus erythematosus, unspecified; E89.0 Postprocedural hypothyroidism; J45.909 Unspecified asthma, uncomplicated; G43.909 Migraine, unspecified, not intractable, without status migrainosus; Z79.899 Other long term (current) drug therapy; Z88.0 Allergy status to penicillin; Z88.5 Allergy status to narcotic agent; Z88.6 Allergy status to analgesic agent; Z91.013 Allergy to seafood
CPT/HCPCS: 20225; 36415; 77012; 85097; 85610; 85730; 88184; 88189; 88237; 88264; 88280; 88305; 88311; 88313

== ENCOUNTER 2019-07-09 11:46 | Day surgery (SDC) | payer MEDICARE, OTHER ==
[2019-07-09] MEDS ORDERED: diphenhydrAMINE 25 MG CAP PO SCH (12:15)
[2019-07-09] MEDS ORDERED: Acetaminophen 500 MG TAB PO SCH (12:15)
[2019-07-09] MEDS ORDERED: Sodium Chloride 0.9% 20 ML ONE (13:36)
[2019-07-09 16:38] VITALS: BP 107/58; TEMP 98.8
== END 2019-07-09 16:38 | disposition home or self-care (01) ==
LOC: ONC/OP 11:46
PROVIDERS: ATTEND Internal Medicine Hematology & Oncology
PROC: 30233N1 Transfusion of Nonautologous Red Blood Cells into Peripheral Vein, Percutaneous Approach (ICD-10-PCS; principal; 2019-07-09)
DX: D64.9 Anemia, unspecified (principal); D69.6 Thrombocytopenia, unspecified; Z88.0 Allergy status to penicillin; Z88.6 Allergy status to analgesic agent; Z88.5 Allergy status to narcotic agent; Z91.013 Allergy to seafood; Z91.041 Radiographic dye allergy status
CPT/HCPCS: 36430; 86850; 86900; 86901; P9016; Q0163